=== PATIENT | male | born 1995 | race Caucasian/White ===

== ENCOUNTER 2019-05-27 06:09 | Emergency (ER) | payer BC, SELFPAY ==
[2019-05-27] MEDS ORDERED: NA CHLORIDE 0.9% 1,000 ML ONE (06:36)
[2019-05-27] MEDS ORDERED: FENTANYL CITR 100 MCG/2 ML ONE (06:36)
[2019-05-27] MEDS ORDERED: ONDANSETRON 4 MG/2 ML VIAL ONE (06:36)
[2019-05-27 06:40] LABS: Absolute Lymphocytes (CBC) 2.4 K/uL (0.7-4.9); Basophils % 0.7 % (0-1.3); Lymphocytes % 38.5 % (15.3-44.8); MPV 9.4 fL (7.6-11.3); RBC Red Blood Cell Count 4.79 M/uL (4.33-5.43)
[2019-05-27 06:57] LABS: ALT/SGPT 54 U/L (12-78); AST/SGOT 50 U/L (15-37); Albumin 3.7 g/dL (3.4-5.0); Alkaline Phosphatase 52 U/L (45-117); BUN Blood Urea Nitrogen 15 mg/dL (7-18); Bicarbonate 27 mmol/L (21-32); Bilirubin Direct 0.2 mg/dL (0-0.2); Bilirubin Total 0.7 mg/dL (0.2-1.0); Glucose Level 272 mg/dL (74-106); Lipase 90 U/L (73-393); Potassium 3.7 mmol/L (3.5-5.1); Sodium Level 138 mmol/L (136-145)
--- NOTE | 2019-05-27 07:40 | RAD REPORT ---
EXAM DESCRIPTION: CT - Abdomen Pelvis W Contrast - 05/27/2019 7:24 am CLINICAL HISTORY: ABD PAIN, nausea, history of pancreatitis, prior cholecystectomy COMPARISON: CT March 2017 TECHNIQUE: Biphasic, helical CT imaging of the abdomen and pelvis was performed following 100 ml non -ionic IV contrast. No oral contrast. All CT scans are performed using dose optimization technique as appropriate and may include automated exposure control or mA/KV adjustment according to patient size. FINDINGS: No suspicious findings in the lung bases. Liver attenuation is borderline fatty infiltrated. No focal liver lesions seen. No splenic abnormalit y. Small accessory splenic nodule is present. No pancreatitis findings. No focal pancreatic process s een. Cholecystectomy clips are present with no biliary tree dilatation. Symmetric renal function is seen with no hydronephrosis or suspicious renal mass. No pyelonephritis o r acute parenchymal process. No bladder abnormalities. No adrenal abnormalities. No bowel dilatation or wall thickening. There is no appendicitis. Moderately large stool volume diste nds the rectum. A few fluid-filled small bowel loops are present. There are few sub centimeter mesent konrad lymph nodes seen. No free air, free fluid or inflammatory stranding. No hernia, mass or bulky lymphadenopathy. No suspicious bony findings. L5 pars defects are present without subluxation. IMPRESSION: Contrast enhanced CT abdomen and pelvis imaging shows no emergent finding. A few small mesenteric lymph nodes are present. Fluid-filled distal small bowel loops are present. A mild or minimal enteritis would be possible.
--- NOTE | 2019-05-27 07:46 | EDPHYS ---
Physician Documentation [facility] Name: Claus Shaw Age: 24 yrs Sex: Male : 1995 Arrival Date: 05/27/2019 Time: 06:10 Bed 14 Private MD: ED Physician Ford Rene HPI: 05/27 06:44 This 24 yrs old Male presents to ER via Ambulatory with complaints of kb Abdominal Pain. 06:44 The patient presents with abdominal pain in the upper abdomen. Onset: The kb symptoms/episode began/occurred 1 hour(s) ago. The symptoms do not radiate. Associated signs and symptoms: none. The symptoms are described as intermittent, sharp. Modifying factors: The symptoms are alleviated by nothing, the symptoms are aggravated by nothing. Severity of pain: At its worst the pain was moderate in the emergency department the pain is unchanged. The patient has not experienced similar symptoms in the past. The patient has not recently seen a physician. 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 Denies f/n/v/d. Historical: - Allergies: 06:19 No Known Allergies; tl1 - Home Meds: 06:19 Metformin Oral [Active]; tl1 - PMHx: 06:19 Diabetes - NIDDM; Hypertension; Pancreatitis; tl1 - PSHx: 06:19 Cholecystectomy; tl1 - Immunization history:: Adult Immunizations up to date. - Social history:: Smoking status: Patient/guardian denies using tobacco, Patient/guardian denies using alcohol, street drugs. - Ebola Screening: : Patient negative for fever greater than or equal to 101.5 degrees Fahrenheit, and additional compatible Ebola Virus Disease symptoms Patient denies exposure to infectious person Patient denies travel to an Ebola-affected area in the 21 days before illness onset. ROS: 06:44 Constitutional: Negative for fever, chills, and weight loss, Cardiovascular: Negative kb for chest pain, palpitations, and edema, Respiratory: Negative for shortness of breath, cough, wheezing, and pleuritic chest pain, Back: Negative for injury and pain, : Negative for injury, bleeding, discharge, and swelling, MS/Extremity: Negative for injury and deformity, Skin: Negative for injury, rash, and discoloration, Neuro: Negative for headache, weakness, numbness, tingling, and seizure. 06:44 Abdomen/GI: Positive for abdominal pain, Negative for nausea, vomiting, and diarrhea, constipation, abdominal cramps, abdominal distension, anorexia. Exam: 06:44 Constitutional: This is a well developed, well nourished patient who is awake, alert, kb and in no acute distress. Head/Face: Normocephalic, atraumatic. ENT: Nares patent. No nasal discharge, no septal abnormalities noted. Tympanic membranes are normal and external auditory canals are clear. Oropharynx with no redness, swelling, or masses, exudates, or evidence of obstruction, uvula midline. Mucous membranes moist. Neck: Trachea midline, no thyromegaly or masses palpated, and no cervical lymphadenopathy. Supple, full range of motion without nuchal rigidity, or vertebral point tenderness. No Meningismus. Chest/axilla: Normal chest wall appearance and motion. Nontender with no deformity. No lesions are appreciated. Cardiovascular: Regular rate and rhythm with a normal S1 and S2. No gallops, murmurs, or rubs. Normal PMI, no JVD. No pulse deficits. Respiratory: Lungs have equal breath sounds bilaterally, clear to auscultation and percussion. No rales, rhonchi or wheezes noted. No increased work of breathing, no retractions or nasal flaring. Back: No spinal tenderness. No costovertebral tenderness. Full range of motion. Skin: Warm, dry with normal turgor. Normal color with no rashes, no lesions, and no evidence of cellulitis. MS/ Extremity: Pulses equal, no cyanosis. Neurovascular intact. Full, normal range of motion. Neuro: Awake and alert, GCS 15, oriented to person, place, time, and situation. Cranial nerves II-XII grossly intact. Motor strength 5/5 in all extremities. Sensory grossly intact. Cerebellar exam normal. Normal gait. 06:44 Abdomen/GI: Inspection: abdomen appears normal, Bowel sounds: normal, in all quadrants, Palpation: soft, in all quadrants, moderate abdominal tenderness, in the epigastric area, right upper quadrant and left upper quadrant. Vital Signs: 06:19 BP 144 / 103; Pulse 83; Resp 20; Temp 98.3(O); Pulse Ox 98% on R/A; Weight 107.95 kg; tl1 Height 6 ft. (182.88 cm); Pain 8/10; 07:19 rb1 07:30 BP 130 / 85; Pulse 75; Resp 19; Pulse Ox 96% on R/A; Pain 3/10; rb1 06:19 Body Mass Index 32.28 (107.95 kg, 182.88 cm) tl1 07:[address] rb1 MDM: 06:15 Patient medically screened. kb 06:43 Data reviewed: vital signs, nurses notes. Data interpreted: Pulse oximetry: on room air kb is 98 %. Interpretation: normal. 07:45 Counseling: I had a detailed discussion with the patient and/or guardian regarding: the kb historical points, exam findings, and any diagnostic results supporting the discharge/admit diagnosis, lab results, radiology results, the need for outpatient follow up, a family practitioner, to return to the emergency department if symptoms worsen or persist or if there are any questions or concerns that arise at home. 05/27 06:22 Order name: Basic Metabolic Panel; Complete Time: 07:00 kb 05/27 06:22 Order name: CBC with Diff; Complete Time: 07:00 kb 05/27 06:22 Order name: Hepatic Function; Complete Time: 07:00 kb 05/27 06:22 Order name: Lipase; Complete Time: 07:00 kb 05/27 07:02 Order name: CT Abd/Pelvis - IV Contrast Only; Complete Time: 07:44 kb 05/27 06:22 Order name: IV Saline Lock; Complete Time: 06:48 kb 05/27 06:22 Order name: Labs collected and sent; Complete Time: 06:48 kb Administered Medications: 06:44 Drug: NS 0.9% 1000 ml Route: IV; Rate: 1000 ml; Site: right antecubital; jb4 07:48 Follow up: IV Status: Completed infusion rb1 06:45 Drug: Zofran 4 mg Route: IVP; Site: right antecubital; jb4 07:00 Follow up: Response: No adverse reaction rb1 06:47 Drug: fentaNYL (PF) 25 mcg {Note: Rass score 0.} Route: IVP; Site: right antecubital; jb4 07:00 Follow up: Response: No adverse reaction; Pain is decreased rb1 Disposition: 05/27/19 07:45 Discharged to Home. Impression: Upper abdominal pain, unspecified, Hyperglycemia, unspecified. - Condition is Stable. - Discharge Instructions: Abdominal Pain, Adult, [id number]. - Prescriptions for Bentyl 20 mg Oral Tablet - take 1 tablet by ORAL route every 6 hours As needed; 20 tablet. - Medication Reconciliation Form, Thank You Letter, Antibiotic Education, Prescription Opioid Use, Work release form form. - Follow up: Emergency Department; When: As needed; Reason: Worsening of condition. Follow up: Private Physician; When: 2 - 3 days; Reason: Recheck today's complaints, Continuance of care, Re-evaluation by your physician. Signatures: Dispatcher [employer] EDMS Maribel Hudson, CONCRETING SUPERVISOR-C CONCRETING SUPERVISOR-CkHortensia Lucio, RN RN tl1 Argentina Clarke, RN RN rb1 Jaylon Mccullough RN RN jb4 Corrections: (The following items were deleted from the chart) 07:46 07:45 05/27/2019 07:45 Discharged to Home. Impression: Upper abdominal pain, kb unspecified. Condition is Stable. Forms are Medication Reconciliation Form, Thank You Letter, Antibiotic Education, Prescription Opioid Use. Follow up: Emergency Department; When: As needed; Reason: Worsening of condition. Follow up: Private Physician; When: 2 - 3 days; Reason: Recheck today's complaints, Continuance of care, Re-evaluation by your physician. kb 07:59 07:46 05/27/2019 07:45 Discharged to Home. Impression: Upper abdominal pain, rb1 unspecified; Hyperglycemia, unspecified. Condition is Stable. Discharge Instructions: Abdominal Pain, Adult, [id number]. Prescriptions for Bentyl 20 mg Oral Tablet - take 1 tablet by ORAL route every 6 hours As needed; 20 tablet. and Forms are Medication Reconciliation Form, Thank You Letter, Antibiotic Education, Prescription Opioid Use. Follow up: Emergency Department; When: As needed; Reason: Worsening of condition. Follow up: Private Physician; When: 2 - 3 days; Reason: Recheck today's complaints, Continuance of care, Re-evaluation by your physician. kb
--- NOTE | 2019-05-27 07:46 | ER ---
Nurse's Notes [facility] Name: Claus Shaw Age: 24 yrs Sex: Male : 1995 Arrival Date: 05/27/2019 Time: 06:10 Bed 14 Private MD: Diagnosis: Upper abdominal pain, unspecified;Hyperglycemia, unspecified Presentation: 05/27 06:17 Presenting complaint: Patient states: I started having upper abdominal pain about 1 tl1 hour ago with nausea. I have had pancreatitis before but had my gallbladder taken out in 2017 and have not had it since. Transition of care: patient was not received from another setting of care. Onset of symptoms was May 27, 2019. Risk Assessment: Do you want to hurt yourself or someone else? Patient reports no desire to harm self or others. Initial Sepsis Screen: Does the patient meet any 2 criteria? No. Patient's initial sepsis screen is negative. Does the patient have a suspected source of infection? No. Patient's initial sepsis screen is negative. Care prior to arrival: None. 06:17 Method Of Arrival: Ambulatory tl1 06:17 Acuity: LUISA 3 tl1 Triage Assessment: 06:21 General: Appears uncomfortable, Behavior is calm, cooperative, appropriate for age. tl1 Pain: Complains of pain in epigastric area, right upper quadrant and left upper quadrant Pain currently is 8 out of 10 on a pain scale. Pain began 1 hour ago. Is continuous. EENT: No deficits noted. Neuro: Level of Consciousness is awake, alert, obeys commands. Cardiovascular: Denies chest pain. Respiratory: Airway is patent Trachea midline Respiratory effort is even, unlabored, Breath sounds are clear bilaterally. GI: Abdomen is non-distended, Bowel sounds present X 4 quads. Abdomen is tender to palpation in epigastric area. : No signs and/or symptoms were reported regarding the genitourinary system. Derm: No signs and/or symptoms reported regarding the dermatologic system. Historical: - Allergies: 06:19 No Known Allergies; tl1 - Home Meds: 06:19 Metformin Oral [Active]; tl1 - PMHx: 06:19 Diabetes - NIDDM; Hypertension; Pancreatitis; tl1 - PSHx: 06:19 Cholecystectomy; tl1 - Immunization history:: Adult Immunizations up to date. - Social history:: Smoking status: Patient/guardian denies using tobacco, Patient/guardian denies using alcohol, street drugs. - Ebola Screening: : Patient negative for fever greater than or equal to 101.5 degrees Fahrenheit, and additional compatible Ebola Virus Disease symptoms Patient denies exposure to infectious person Patient denies travel to an Ebola-affected area in the 21 days before illness onset. Screenin:26 Abuse screen: Denies threats or abuse. Nutritional screening: No deficits noted. jb4 Tuberculosis screening: No symptoms or risk factors identified. Fall Risk None identified. Assessment: 06:24 General: Appears in no apparent distress. uncomfortable, Behavior is calm, cooperative, jb4 appropriate for age. Pain: Complains of pain in epigastric area Pain does not radiate. Pain currently is 8 out of 10 on a pain scale. Quality of pain is described as stabbing, Pain began 1 day ago. Neuro: Level of Consciousness is awake, alert, obeys commands, Oriented to person, place, time, situation. Cardiovascular: Patient's skin is warm and dry. Respiratory: Airway is patent Respiratory effort is even, unlabored, Respiratory pattern is regular, symmetrical. GI: Abdomen is round non-distended, Bowel sounds present X 4 quads. Abd is soft X 4 quads Abd is non tender X 4 quads Abdomen is tender to palpation in epigastric area. : No deficits noted. No signs and/or symptoms were reported regarding the genitourinary system. EENT: No deficits noted. No signs and/or symptoms were reported regarding the EENT system. Derm: Skin is intact, Skin is pink, warm \T\ dry. Musculoskeletal: Circulation, motion, and sensation intact. Range of motion: intact in all extremities. 07:00 General: Appears in no apparent distress. comfortable, Behavior is calm, cooperative. rb1 Pain: Complains of pain in abdomen Pain currently is 3 out of 10 on a pain scale. Neuro: Level of Consciousness is awake, alert, obeys commands, Oriented to person, place, time, situation. Cardiovascular: Capillary refill < 3 seconds is brisk in bilateral fingers. Respiratory: Airway is patent Respiratory effort is even, unlabored, Respiratory pattern is regular, symmetrical. Derm: Skin is pink, warm \T\ dry. 07:58 Reassessment: Patient appears in no apparent distress at this time. No changes from rb1 previously documented assessment. Vital Signs: 06:19 BP 144 / 103; Pulse 83; Resp 20; Temp 98.3(O); Pulse Ox 98% on R/A; Weight 107.95 kg; tl1 Height 6 ft. (182.88 cm); Pain 8/10; 07:19 rb1 07:30 BP 130 / 85; Pulse 75; Resp 19; Pulse Ox 96% on R/A; Pain 3/10; rb1 06:19 Body Mass Index 32.28 (107.95 kg, 182.88 cm) tl1 07:[address] rb1 ED Course: 06:10 Patient arrived in ED. ds1 06:10 Maribel Hudson FNP-C is PHCP. kb 06:10 Ford Rene MD is Attending Physician. kb 06:19 Triage completed. tl1 06:20 Arm band placed on right wrist. tl1 06:24 Initial lab(s) drawn, by me, sent to lab. Inserted saline lock: 20 gauge in right jb4 wrist, using aseptic technique. Blood collected. 06:26 Patient has correct armband on for positive identification. Placed in gown. Bed in low jb4 position. Call light in reach. Side rails up X 1. Pulse ox on. NIBP on. 07:25 CT Abd/Pelvis - IV Contrast Only In Process Unspecified. EDMS 07:27 Argentina Clarke, RN is Primary Nurse. rb1 07:58 No provider procedures requiring assistance completed. IV discontinued, intact, rb1 bleeding controlled, No redness/swelling at site. Pressure dressing applied. Administered Medications: 06:44 Drug: NS 0.9% 1000 ml Route: IV; Rate: 1000 ml; Site: right antecubital; jb4 07:48 Follow up: IV Status: Completed infusion rb1 06:45 Drug: Zofran 4 mg Route: IVP; Site: right antecubital; jb4 07:00 Follow up: Response: No adverse reaction rb1 06:47 Drug: fentaNYL (PF) 25 mcg {Note: Rass score 0.} Route: IVP; Site: right antecubital; jb4 07:00 Follow up: Response: No adverse reaction; Pain is decreased rb1 Outcome: 07:45 Discharge ordered by . kb 07:58 Discharged to home ambulatory, with family. rb1 07:58 Condition: stable 07:58 Discharge instructions given to patient, Instructed on discharge instructions, follow up and referral plans. medication usage, Demonstrated understanding of instructions, follow-up care, medications, Prescriptions given X 1. 07:59 Patient left the ED. rb1 Signatures: Dispatcher [employer] EDMS Maribel Hudson, OIL WELL GUN PERFORATOR OPERATOR-C OIL WELL GUN PERFORATOR OPERATOR-CkMary Elena ds1 Hortensia Tmoas RN RN tl1 Argentina Clarke, RN RN rb1 Jaylon Mccullough RN RN jb4
[2019-05-27 08:06] VITALS: TEMP 98.3
[2019-05-27 08:07] VITALS: BP 130/85; O2SAT 96
== END 2019-05-27 07:59 | disposition home or self-care (01) ==
LOC: ER 06:09
DX: E11.65 Type 2 diabetes mellitus with hyperglycemia (principal); I10 Essential (primary) hypertension
CPT/HCPCS: 36415; 74177; 80048; 80076; 83690; 85025; 96361; 96374; 96375; 99284; J2405; J3010; J7030; Q9967

== ENCOUNTER 2022-08-12 00:55 | Inpatient (IN) | payer BC, SELFPAY ==
[2022-08-12] MEDS ORDERED: DIPHENHYDRAMINE 50 MG/ML VIAL ONE (01:34)
[2022-08-12] MEDS ORDERED: NA CHLORIDE 0.9% 1,000 ML ONE ×2 (01:34→04:32)
[2022-08-12] MEDS ORDERED: METOCLOPRAMIDE 10 MG/2mL INJ ONE (01:34)
[2022-08-12 02:19] LABS: Absolute Lymphocytes (CBC) 1.2 K/uL (0.7-4.9); Hematocrit 51.5 % (39.6-49.0); Lymphocytes % 11.6 % (15.3-44.8); MPV 9.2 fL (7.6-11.3); RBC Red Blood Cell Count 5.54 M/uL (4.33-5.43)
[2022-08-12 04:01] LABS: Bilirubin Total 0.6 mg/dL (0.2-1.0); Protein, Total 8.6 g/dL (6.4-8.2)
[2022-08-12 04:02] LABS: Magnesium 2.3 mg/dL (1.6-2.4); Potassium 4.5 mmol/L (3.5-5.1)
--- NOTE | 2022-08-12 04:29 | EDPHYS ---
Physician Documentation [facility] Name: Claus Shaw Age: 27 yrs Sex: Male : 1995 Arrival Date: 08/12/2022 Time: 00:59 Bed 8 Private MD: ED Physician Grabiel Johnson HPI: 08/12 01:50 This 27 yrs old Male presents to ER via Ambulatory with complaints of Headache, Nausea. rt 01:50 The patient complains of pain to the forehead. The patient describes the headache as rt aching. Onset: The symptoms/episode began/occurred 2 day(s) ago. Associated signs and symptoms: Pertinent positives: nausea, vomiting. Presents to the ED with about 2 days of a frontal headache. He states that he gets about 2 headaches a month that are very similar to those. It is improving, almost resolution with Excedrin. About 4 hours prior to arrival, the patient developed nausea and vomiting, reports about 5 episodes. He denies other acute complaints. He states that his nausea also is almost gone. Patient states that he has never had any neuroimaging for his headaches. He denies other acute complaints at this time, symptoms are moderate severity, no other aggravating or alleviating factors. Historical: - Allergies: 01:08 No Known Allergies; vc1 - Home Meds: 01:08 Metformin Oral [Active]; Jardiance oral [Active]; rosuvastatin oral [Active]; vc1 - PMHx: 01:08 Diabetes - NIDDM; Pancreatitis; vc1 - PSHx: 01:08 Cholecystectomy; vc1 - Immunization history:: Client reports receiving the 2nd dose of the Covid vaccine. - Social history:: Smoking status: Patient denies any tobacco usage or history of. - Family history:: not pertinent. ROS: 01:50 Constitutional: Negative for fever, chills, and weight loss, Eyes: Negative for injury, rt pain, redness, and discharge, ENT: Negative for injury, pain, and discharge, Neck: Negative for injury, pain, and swelling, Cardiovascular: Negative for chest pain, palpitations, and edema, Respiratory: Negative for shortness of breath, cough, wheezing, and pleuritic chest pain, MS/Extremity: Negative for injury and deformity, Skin: Negative for injury, rash, and discoloration, Psych: Negative for depression, anxiety, suicide ideation, homicidal ideation, and hallucinations. 01:50 Abdomen/GI: Positive for nausea, vomiting, Negative for abdominal pain. 01:50 Neuro: Positive for headache, Negative for altered mental status. Exam: 01:50 Constitutional: This is a well developed, well nourished patient who is awake, alert, rt and in no acute distress. Head/Face: Normocephalic, atraumatic. Eyes: Pupils equal round and reactive to light, extra-ocular motions intact. Lids and lashes normal. Conjunctiva and sclera are non-icteric and not injected. Cornea within normal limits. Periorbital areas with no swelling, redness, or edema. Chest/axilla: Normal chest wall appearance and motion. Nontender with no deformity. No lesions are appreciated. Cardiovascular: Regular rate and rhythm with a normal S1 and S2. No gallops, murmurs, or rubs. Normal PMI, no JVD. No pulse deficits. Respiratory: Lungs have equal breath sounds bilaterally, clear to auscultation and percussion. No rales, rhonchi or wheezes noted. No increased work of breathing, no retractions or nasal flaring. Abdomen/GI: Soft, non-tender, with normal bowel sounds. No distension or tympany. No guarding or rebound. No evidence of tenderness throughout. Skin: Warm, dry with normal turgor. Normal color with no rashes, no lesions, and no evidence of cellulitis. MS/ Extremity: Pulses equal, no cyanosis. Neurovascular intact. Full, normal range of motion. Neuro: Awake and alert, GCS 15, oriented to person, place, time, and situation. Cranial nerves II-XII grossly intact. Motor strength 5/5 in all extremities. Sensory grossly intact. Cerebellar exam normal. Normal gait. Psych: Awake, alert, with orientation to person, place and time. Behavior, mood, and affect are within normal limits. 01:50 ECG was reviewed by the Attending Physician. Vital Signs: 01:06 BP 139 / 95; Pulse 136; Resp 18; Temp 98.2; Pulse Ox 95% on R/A; Weight 106.59 kg; vc1 Height 5 ft. 11 in. (180.34 cm); Pain 6/10; 02:00 BP 156 / 91; Pulse 177; Resp 20 S; Pulse Ox 98% on R/A; as6 03:03 BP 120 / 79; Pulse 119; Resp 19 S; Pulse Ox 100% on R/A; as6 04:09 BP 127 / 71; Pulse 119; Resp 18 S; Pulse Ox 99% on R/A; as6 05:02 BP 128 / 79; Pulse 120; Resp 17 S; Pulse Ox 99% on R/A; as6 06:00 BP 129 / 84; Pulse 115; Resp 17 S; Pulse Ox 100% on R/A; as6 07:00 BP 124 / 74; Pulse 113; Resp 19 S; Pulse Ox 99% on R/A; as6 01:06 Body Mass Index 32.78 (106.59 kg, 180.34 cm) vc1 MDM: 01:14 Patient medically screened. rt 04:29 Differential diagnosis: Hydration, migraine, intracranial hemorrhage, tumor, rt meningitis, encephalitis. Data reviewed: vital signs, nurses notes, lab test result(s), EKG, radiologic studies. ED course: Presents to the ED with headache, nausea and vomiting. He has not had a previous work-up for his headaches, therefore, CT scan was obtained that shows no evidence of hemorrhage, tumor, hydrocephalus. He has no fever, has full range of motion of the neck, low suspicion for meningitis, encephalitis, subarachnoid hemorrhage, do not believe that lumbar puncture is indicated at this time. Patient with tachycardia, improved with IV fluids. He is found to have a high anion gap metabolic acidosis. Patient with mild hyperglycemia, hyper, he takes an SGLT2 inhibitor, likely a euglycemic DKA. We will start patient on an insulin drip. Patient to be admitted for further care.. 08/12 01:25 Order name: CBC with Diff; Complete Time: 02:37 rt 08/12 01:25 Order name: CMP; Complete Time: 04:04 rt 08/12 01:25 Order name: Lipase; Complete Time: 04:04 rt 08/12 01:25 Order name: Magnesium; Complete Time: 04:04 rt 08/12 04:23 Order name: Ketone, Serum; Complete Time: 04:47 rt 08/12 04:23 Order name: ABG; Complete Time: 04:52 rt 08/12 05:01 Order name: SARS RAPID vc1 08/12 05:05 Order name: Magnesium EDMS 08/12 05:05 Order name: Osmolality, Serum EDMS 08/12 05:05 Order name: Phosphorus EDMS 08/12 05:05 Order name: Acetone Level EDMS 08/12 05:05 Order name: Acetone Level EDMS 08/12 05:05 Order name: Acetone Level EDMS 08/12 05:05 Order name: Acetone Level EDMS 08/12 05:05 Order name: Basic Metabolic Panel EDMS 08/12 05:05 Order name: Basic Metabolic Panel EDMS 08/12 05:05 Order name: Basic Metabolic Panel EDMS 08/12 05:05 Order name: Basic Metabolic Panel EDMS 08/12 06:14 Order name: Glucose, Ancillary Testing EDMS 08/12 06:46 Order name: Urine Dipstick-Ancillary EDMS 08/12 07:03 Order name: Glucose, Ancillary Testing EDMS 08/12 07:49 Order name: Glucose, Ancillary Testing EDMS 08/12 09:01 Order name: Glucose, Ancillary Testing EDMS 08/12 09:34 Order name: Glucose, Ancillary Testing EDMS 08/12 10:40 Order name: ABG Arterial Blood Gas EDMS 08/12 11:00 Order name: Glucose, Ancillary Testing EDMS 08/12 12:03 Order name: Glucose, Ancillary Testing EDMS 08/12 13:25 Order name: Glucose, Ancillary Testing EDMS 08/12 15:18 Order name: Glucose, Ancillary Testing EDMS 08/12 16:38 Order name: Glucose, Ancillary Testing EDMS 08/12 01:25 Order name: EKG; Complete Time: 01:26 rt 08/12 01:25 Order name: EKG - Nurse/Tech; Complete Time: 01:46 rt 08/12 01:25 Order name: CT Head Brain wo Cont rt 08/12 04:23 Order name: Urine Dipstick-Ancillary (obtain specimen); Complete Time: 06:45 rt 08/12 04:24 Order name: Urine Dipstick-Ancillary (obtain specimen); Complete Time: 06:45 la1 08/12 05:05 Order name: NPO EDMS 08/12 17:43 Order name: Glucose, Ancillary Testing EDMS 08/12 18:42 Order name: Glucose, Ancillary Testing EDMS 08/12 20:03 Order name: Glucose, Ancillary Testing EDMS 08/12 20:33 Order name: Basic Metabolic Panel EDMS 08/12 21:03 Order name: Glucose, Ancillary Testing EDMS EC:50 Rate is 112 beats/min. Rhythm is regular, Sinus tachycardia with No ectopy. QRS [place] is rt Normal. MO interval is normal. QRS interval is normal. QT interval is normal. No Q waves. T waves are Normal. No ST changes noted. Interpreted by me. Administered Medications: 01:55 Drug: NS 0.9% 1000 ml Route: IV; Rate: 1 bolus; Site: right antecubital; as6 01:55 Drug: Reglan (metoCLOPramide) 10 mg Route: IVP; Site: right antecubital; as6 01:55 Drug: Benadryl (diphenhydrAMINE) 25 mg Route: IVP; Site: right antecubital; as6 05:00 Drug: Insulin Drip - (Insulin Regular Human 100 units, NS 0.9% 100 ml) {Co-Signature: as6 vc1 (Lisa Padilla RN).} Route: IV; Rate: calculated rate; Site: right antecubital; 05:01 Drug: D5-1/2 NS 1000 ml Route: IV; Rate: 125 ml/hr; Site: left hand; as6 05:02 Drug: NS 0.9% 1000 ml Route: IV; Rate: 1 bolus; Site: right antecubital; as6 06:52 Drug: Ketorolac 30 mg Route: IVP; Site: left hand; as6 Disposition Summary: 08/12/22 04:28 Hospitalization Ordered Hospitalization Status: Inpatient Admission rt Condition: Fair rt Problem: new rt Symptoms: have improved rt Bed/Room Type: Standard rt Provider: Austin Veras(08/12/22 04:55) rt Location: Intensive Care Unit(08/12/22 20:24) cg Room Assignment: 7-(08/12/22 20:24) cg Diagnosis - Other specified diabetes mellitus with ketoacidosis without coma rt Forms: - Medication Reconciliation Form rt - SBAR form rt Critical care time excluding procedures: 04:29 Critical care time: Bedside Care: 30 minutes, Consultation: 5 minutes. Total time: 35 rt minutes Signatures: Dispatcher [employer] EDFL Jeremy Caicedo FNP-C PORTABLE SAWMILL OPERATOR-Cla1 Briana Shaw RN RN cg Slawson, Ashby, RN RN as6 Lisa Padilla RN RN vc1 Grabiel Johnson MD MD rt Lisa Padilla RN vc1 Corrections: (The following items were deleted from the chart) 01:10 01:08 PMHx: Hypertension; 1 vc1 04:55 04:28 Marvin Real rt rt 05:06 04:28 Intensive Care Unit rt cg 05:06 04:28 rt cg 20:24 05:06 [facility] ER HOLD cg cg 20:24 05:06 ERHOLD- cg cg
--- NOTE | 2022-08-12 04:29 | ER ---
Nurse's Notes [facility] Name: Claus Shaw Age: 27 yrs Sex: Male : 1995 Arrival Date: 08/12/2022 Time: 00:59 Bed 8 Private MD: Diagnosis: Other specified diabetes mellitus with ketoacidosis without coma Presentation: 08/12 01:06 Chief complaint: Patient states: "I have had a headache and nasal congestion for the vc1 past 3 days, the las 24 hours I have started feeling nauseous and around 6 pm I started vomiting.". Coronavirus screen: Vaccine status: Patient reports receiving the 2nd dose of the covid vaccine. Moderna chills, headache, nausea, vomiting. Client presents with at least one sign or symptom that may indicate coronavirus-19. Standard/surgical mask placed on the client. Provider contacted for isolation considerations. Ebola Screen: No symptoms or risks identified at this time. Initial Sepsis Screen: Does the patient meet any 2 criteria? HR > 90 bpm. No. Patient's initial sepsis screen is negative. Does the patient have a suspected source of infection? No. Patient's initial sepsis screen is negative. Risk Assessment: Do you want to hurt yourself or someone else? Patient reports no desire to harm self or others. Onset of symptoms was August 09, 2022. 01:06 Method Of Arrival: Ambulatory vc1 01:06 Acuity: LUISA 3 vc1 Triage Assessment: 01:10 Headache History: The patient has had previous headaches and this one is similar to vc1 previous episodes. General: Appears in no apparent distress. uncomfortable, ill, Behavior is calm, cooperative, appropriate for age. Pain: Complains of pain in forehead and left side of forehead Pain does not radiate. Pain currently is 6 out of 10 on a pain scale. Pain began gradually, Also complains of nausea. EENT: No deficits noted. Neuro: Level of Consciousness is awake, alert, obeys commands, Oriented to person, place, time, situation, Appropriate for age [employer] are Reports headache in left frontal area. Cardiovascular:. Respiratory: Airway is patent Respiratory effort is even, unlabored, Respiratory pattern is regular, symmetrical. GI: No deficits noted. No signs and/or symptoms were reported involving the gastrointestinal system. : No deficits noted. No signs and/or symptoms were reported regarding the genitourinary system. Derm: No deficits noted. No signs and/or symptoms reported regarding the dermatologic system. Musculoskeletal: No deficits noted. No signs and/or symptoms reported regarding the musculoskeletal system. Historical: - Allergies: 01:08 No Known Allergies; vc1 - Home Meds: 01:08 Metformin Oral [Active]; Jardiance oral [Active]; rosuvastatin oral [Active]; vc1 - PMHx: 01:08 Diabetes - NIDDM; Pancreatitis; vc1 - PSHx: 01:08 Cholecystectomy; vc1 - Immunization history:: Client reports receiving the 2nd dose of the Covid vaccine. - Social history:: Smoking status: Patient denies any tobacco usage or history of. - Family history:: not pertinent. Screenin:02 [facility] ED Fall Risk Assessment (Adult) Score/Fall Risk Level 0 - 2 = Low Risk. Abuse as6 screen: Denies threats or abuse. Denies injuries from another. Nutritional screening: No deficits noted. Tuberculosis screening: No symptoms or risk factors identified. Assessment: 01:15 General: Appears uncomfortable, Behavior is calm, cooperative. Pain: Complains of pain as6 in face and left side of forehead and forehead. Neuro: Level of Consciousness is awake, alert, obeys commands, Oriented to person, place, time, situation, Reports headache in left frontal area. Cardiovascular: Capillary refill < 3 seconds Patient's skin is warm and dry. Rhythm is sinus tachycardia. Respiratory: Respiratory effort is even, unlabored, Respiratory pattern is regular, symmetrical. GI: Reports nausea. 02:00 GI: Pt is actively vomiting clear fluid. as6 03:05 Reassessment: Patient appears in no apparent distress at this time. Patient and/or as6 family updated on plan of care and expected duration. Pain level reassessed. Patient is alert, oriented x 3, equal unlabored respirations, skin warm/dry/pink. Patient states symptoms have improved. 04:09 Reassessment: Patient appears in no apparent distress at this time. Patient and/or as6 family updated on plan of care and expected duration. Pain level reassessed. Patient is alert, oriented x 3, equal unlabored respirations, skin warm/dry/pink. Patient states feeling better. Patient states symptoms have improved. Vital Signs: 01:06 BP 139 / 95; Pulse 136; Resp 18; Temp 98.2; Pulse Ox 95% on R/A; Weight 106.59 kg; vc1 Height 5 ft. 11 in. (180.34 cm); Pain 6/10; 02:00 BP 156 / 91; Pulse 177; Resp 20 S; Pulse Ox 98% on R/A; as6 03:03 BP 120 / 79; Pulse 119; Resp 19 S; Pulse Ox 100% on R/A; as6 04:09 BP 127 / 71; Pulse 119; Resp 18 S; Pulse Ox 99% on R/A; as6 05:02 BP 128 / 79; Pulse 120; Resp 17 S; Pulse Ox 99% on R/A; as6 06:00 BP 129 / 84; Pulse 115; Resp 17 S; Pulse Ox 100% on R/A; as6 07:00 BP 124 / 74; Pulse 113; Resp 19 S; Pulse Ox 99% on R/A; as6 01:06 Body Mass Index 32.78 (106.59 kg, 180.34 cm) vc1 ED Course: 00:59 Patient arrived in ED. ja2 01:00 Grabiel Johnson MD is Attending Physician. rt 01:08 Triage completed. vc1 01:08 Arm band placed on right wrist. vc1 01:17 Ac Neri, ROBERT is Primary Nurse. as6 01:50 Inserted saline lock: 20 gauge in right antecubital area, using aseptic technique. as6 Blood collected. 02:02 Bed in low position. Call light in reach. Side rails up X 1. Adult w/ patient. as6 02:02 Magnesium Sent. as6 02:02 CMP Sent. as6 02:02 Lipase Sent. as6 02:02 CBC with Diff Sent. as6 02:22 CT Head Brain wo Cont In Process Unspecified. EDMS 04:27 Marvin Real MD is Hospitalizing Provider. rt 04:55 Austin Veras MD is Hospitalizing Provider. rt 05:02 Inserted saline lock: 22 gauge in left hand, using aseptic technique. as6 07:10 No provider procedures requiring assistance completed. Patient admitted, IV remains in as6 place. Administered Medications: 01:55 Drug: NS 0.9% 1000 ml Route: IV; Rate: 1 bolus; Site: right antecubital; as6 01:55 Drug: Reglan (metoCLOPramide) 10 mg Route: IVP; Site: right antecubital; as6 01:55 Drug: Benadryl (diphenhydrAMINE) 25 mg Route: IVP; Site: right antecubital; as6 05:00 Drug: Insulin Drip - (Insulin Regular Human 100 units, NS 0.9% 100 ml) {Co-Signature: as6 vc1 (Lisa Padilla RN).} Route: IV; Rate: calculated rate; Site: right antecubital; 05:01 Drug: D5-1/2 NS 1000 ml Route: IV; Rate: 125 ml/hr; Site: left hand; as6 05:02 Drug: NS 0.9% 1000 ml Route: IV; Rate: 1 bolus; Site: right antecubital; as6 06:52 Drug: Ketorolac 30 mg Route: IVP; Site: left hand; as6 Medication: 01:12 VIS not applicable for this client. vc1 Outcome: 04:28 Decision to Hospitalize by Provider. rt 07:10 Admitted to ER Hold. Please see [facility] for further documentation. as6 07:10 Condition: stable 07:10 Instructed on the need for admit. 21:07 Patient left the ED. as6 Signatures: Dispatcher [employer] EDMS Mimi Zazueta Ashby, RN RN as6 Lisa Padilla RN RN vc1 Grabiel Johnson MD MD rt Lisa Padilla RN vc1 Corrections: (The following items were deleted from the chart) 01:10 01:08 PMHx: Hypertension; vc1 vc1
[2022-08-12] MEDS ORDERED: INSULIN -REGULAR HUMAN 50 UNIT/0.5 ML ML ONE (04:32)
[2022-08-12] MEDS ORDERED: NA CHLORIDE 0.9% 100 ML IV ONE (04:32)
[2022-08-12] MEDS ORDERED: D5 0.45 NS 1,000 ML IV ONE (04:34)
[2022-08-12 04:44] LABS: Arterial Blood Carboxyhemoglob 1.1 % (0-1.5); Blood Gas Oxyhemoglobin 93.5 % (94-97); Blood O2 Saturation 96.3 % (92-98.5)
[2022-08-12] MEDS ORDERED: ONDANSETRON 4 MG/2 ML VIAL IV PRN (05:00)
[2022-08-12] MEDS: POTASSIUM CHLORIDE-0.45% NACL 20 MEQ/1,000 ML BAG IV SCH ×5 (05:00→21:00)
[2022-08-12] MEDS ORDERED: INSULIN -REGULAR HUMAN 100 UNIT in NA CHLORIDE 0.9% 100 ML IV SCH (05:00)
[2022-08-12 06:20] LABS: SARS-CoV-2 Antigen Rapid Res Negative (Negative)
[2022-08-12 06:25] LABS: BUN Blood Urea Nitrogen 20 mg/dL (7-18); Glomerular Filtration Rate 70 ml/min (=/>90); Glucose Level 175 mg/dL (74-106); Phosphorus 4.4 mg/dL (2.5-4.9); Sodium Level 139 mmol/L (136-145)
[2022-08-12 06:26] LABS: Bicarbonate 10 mmol/L (21-32); Magnesium 2.4 mg/dL (1.6-2.4); Potassium 4.2 mmol/L (3.5-5.1)
[2022-08-12 06:46] LABS: Urine Blood Negative (Negative); Urine Glucose 2+ (Negative); Urine Protein 1+ (Negative); Urine Specific Gravity >=1.030 (1.005-1.030)
[2022-08-12] MEDS ORDERED: KETOROLAC 30 MG/ML INJ ONE (06:50)
[2022-08-12] MEDS: D5.45NS W/KCL 20MEQ 1,000 ML IV SCH ×4 (07:00→22:01)
[2022-08-12] MEDS: ENOXAPARIN 40 MG/0.4 ML SQ SCH (09:00)
[2022-08-12] MEDS ORDERED: ENOXAPARIN 40 MG/0.4 ML SQ ONE (09:05)
[2022-08-12 09:39] LABS: BUN Blood Urea Nitrogen 18 mg/dL (7-18); Glomerular Filtration Rate 84 ml/min (=/>90); Glucose Level 187 mg/dL (74-106); Sodium Level 133 mmol/L (136-145)
[2022-08-12 09:40] LABS: Bicarbonate 9 mmol/L (21-32); Potassium 4.1 mmol/L (3.5-5.1)
[2022-08-12 10:39] LABS: Arterial Blood Carboxyhemoglob 1.1 % (0-1.5); Blood Gas Oxyhemoglobin 87.4 % (94-97); Blood O2 Saturation 89.9 % (92-98.5)
[2022-08-12] MEDS ORDERED: ACETAMINOPHEN 500 MG TAB ONE (13:04)
[2022-08-12] MEDS: ACETAMINOPHEN 500 MG TAB PO PRN (13:30)
[2022-08-12] MEDS ORDERED: D5.45NS W/KCL 20MEQ 1,000 ML IV ONE (14:13)
[2022-08-12 14:34] LABS: BUN Blood Urea Nitrogen 15 mg/dL (7-18); Glomerular Filtration Rate 72 ml/min (=/>90); Glucose Level 138 mg/dL (74-106); Sodium Level 136 mmol/L (136-145)
[2022-08-12 14:37] LABS: Bicarbonate 14 mmol/L (21-32); Potassium 4.1 mmol/L (3.5-5.1)
[2022-08-12] MEDS: FLUTICASONE 50MCG NASAL SPRAY NAS SCH ×3 (15:45→22:47)
[2022-08-12] MEDS: SUMATRIPTAN SUCCI 50 MG TAB PO PRN ×2 (16:09→21:59)
--- NOTE | 2022-08-12 16:25 | EKG ---
Test Date: 2022-08-12 Test Time: 01:40:35 Supervisor Type Disk Quality Control: MEASUREMENT RESULTS: Intervals: Rate: 112 IL: 136 QRSD: 94 QT: 336 QTc: 458 [place]: P: 53 IL: 136 QRS: 30 T: 13 INTERPRETIVE STATEMENTS: Sinus tachycardia Otherwise normal ECG No previous ECG available for comparison Electronically Signed On 08-12-22 16:24:38 FORMS EXAMINER by Fabian Canseco
[2022-08-12] MEDS ORDERED: ONDANSETRON 4 MG/2 ML VIAL ONE (17:02)
--- NOTE | 2022-08-12 17:34 | P.HP ---
Certification for Inpatient Patient admitted to: Inpatient With expected LOS: >2 Midnights Practitioner: I am a practitioner with admitting privileges, knowledge of patient current condition, hospital course, and medical plan of care. Services: Services provided to patient in accordance with Admission requirements found in Title 42 Section 412.3 of the Code of Federal Regulations Patient History Date of Service: 08/12/22 Reason for admission: WEAKNESS, NAUSEA FOR TWO DAYS History of Present Illness: SHAY IS A DIABETIC WHO HAS BEEN ON NO INSULIN BEFORE. HE HAS BEEN ON M ETFORMIN BEFORE AND JARDIANCE NOW. HE IS NOT COMPLIANT WITH DIETS AND LAB ORDERS. HE WAS TO COME TO ME EVERY 3 MOTNHS AFTER LAB AND HE HAS NOT DONE ANY LAB WORK FOR LAST YEAR AND A HALF. HIS LAST A1C WAS 11. HE COMES IN WITH SYMPTOMS AND DIAGNOSIS OF DKA. Allergies No Known Allergies Allergy (Unverified 07/06/12 17:47) Home Medications: Empagliflozin [Jardiance] 25 mg PO DAILY 08/12/22 Rosuvastatin [Crestor*] 20 mg PO DAILY AT SUPPER 08/12/22 - Past Medical/Surgical History Has patient received pneumonia vaccine in the past: No Diabetic: Yes - Social History Smoking Status: Never smoker Review of Systems 10-point ROS is otherwise unremarkable General: Weakness, Malaise Physical Examination - Vital Signs Temperature: 99.3 F Blood Pressure: 125/92 Pulse: 110 Respirations: 19 Pulse Ox (%): 99 - Physical Exam General: Oriented x3, Acute distress, Mild distress, Moderate distress HEENT: Atraumatic, PERRLA, Mucous membr. moist/pink, EOMI, Sclerae nonicteric Neck: Supple, 2+ carotid pulse no bruit, No LAD, Without JVD or thyroid abnormality Respiratory: Clear to auscultation bilaterally, Normal air movement Cardiovascular: Regular rate/rhythm, Normal S1 S2 Gastrointestinal: Normal bowel sounds, No tenderness Musculoskeletal: No tenderness Integumentary: No rashes Neurological: Normal gait, Normal speech, Normal strength at 5/5 x4 extr, Normal tone, Normal affect Lymphatics: No axilla or inguinal lymphadenopathy - Studies Laboratory Data (last 24 hrs) 08/12/22 03:26: Sodium 135 L, Potassium 4.5, BUN 21 H, Creatinine 1.24, Glucose 202 H, Magnesium 2.3, Total Bilirubin 0.6, AST 27, ALT 62 H, Alkaline Phosphatase 62, Lipase 60 L 08/12/22 01:55: WBC 10.60, Hgb 17.3, Hct 51.5 H, Plt Count 298 Assessment and Plan - Problems (Diagnosis) (1) DKA (diabetic ketoacidosis) Current Visit: Yes Status: Acute Plan: HIS ANION GAP IS CLOSE TO 30 AND INSULIN DRIP, IV HYDRATION HAVE BEEN STARTED. HE HAS HEADCHES AND IS BEING TREATED. HIS LAB HAS IPROVED WELL OVER 12 HOURS. GAP IS DOWN TO 18 NOW AND HE IS STILL ON INSULIN DRIP UNTIL GAP IS DOWN TO NORMAL. HIS PH ON ABG IS 7.13 AND BEYOND 6.9 THERE IS NOT BENEFIT OF BICARB INJECTIONS. PROGNOSIS IS GUARDED HE KNOWS HE WILL BE ON INSULIN FROM NOW ONWARDS. I AM AFRAID HIS COMPLIANCE WILL CONTINUE TO BE POOR. HE KNOWS WITHOUT GOOD CONTROL OF DM HE WILL HAVE LOT OF COMPLICATIONS SOON. Qualifiers: Diabetes mellitus type: type 1 - Advance Directives Does patient have a Living Will: No Does patient have a Durable POA for Healthcare: No
[2022-08-12 20:32] LABS: Potassium 4.1 mmol/L (3.5-5.1)
[2022-08-12] MEDS: PANTOPRAZOLE 40MG TABLET PO SCH (22:11)
[2022-08-13] MEDS: POTASSIUM CHLORIDE-0.45% NACL 20 MEQ/1,000 ML BAG IV SCH ×7 (01:00→20:00)
[2022-08-13 02:18] LABS: Arterial Blood Carboxyhemoglob 1.5 % (0-1.5); Blood Gas Oxyhemoglobin 94.5 % (94-97); Blood O2 Saturation 97.6 % (92-98.5)
[2022-08-13] MEDS: D5.45NS W/KCL 20MEQ 1,000 ML IV SCH ×5 (04:29→16:23)
[2022-08-13 05:04] LABS: Potassium 3.5 mmol/L (3.5-5.1)
[2022-08-13] MEDS: ACETAMINOPHEN 500 MG TAB PO PRN ×3 (06:11→20:56)
[2022-08-13] MEDS: PANTOPRAZOLE 40MG TABLET PO SCH (06:12)
[2022-08-13 06:19] VITALS: BMI 31.9
[2022-08-13 07:51] LABS: Potassium 3.6 mmol/L (3.5-5.1)
[2022-08-13] MEDS: FLUTICASONE 50MCG NASAL SPRAY NAS SCH ×2 (08:30→20:00)
[2022-08-13] MEDS: ENOXAPARIN 40 MG/0.4 ML SQ SCH (08:31)
[2022-08-13] MEDS: TIZANIDINE 4 MG TABLET PO PRN ×2 (09:16→17:59)
[2022-08-13 11:20] LABS: Potassium 3.5 mmol/L (3.5-5.1)
--- NOTE | 2022-08-13 11:21 | RAD REPORT ---
EXAM DESCRIPTION: CT - Head Brain Wo Cont - 08/12/2022 6:42 am CLINICAL HISTORY: 27 years, Male, headache COMPARISON: None. FINDINGS: Multiple transaxial tomograms of the brain were obtained from the base of the skull to the vertex without contrast. 2-D multiplanar reformats and the coronal and sagittal plane were performed and reviewed. This exam was performed according to our departmental dose-optimization protocol, which includes auto mated exposure control, adjustment of the mA and/or kV according to patient size and/or use of iterat gerry reconstruction technique. Brain parenchyma as well as the venegas and white matter differentiation demonstrate to be unremarkable. There is no midline shift and/or mass effect. There is no evidence for acute hemorrhage. No focal ar eas of hypodensities. Lateral ventricles and cisterns displace normal appearance. No intra or ext ra axial fluid collections were seen. The calvarium is intact with no evidence for fracture. The visu alized portions of the paranasal sinuses and orbits demonstrate to be clear. IMPRESSION: No acute intracranial hemorrhage identified. Unremarkable CT scan of the head without contrast. Electronically signed by: Bridger Gonzalez MD 08/12/2022 2:27 AM [facility] Due to temporary technical issues with the PACS/Fluency reporting system, reports are being signed by the in house radiologists without review as a courtesy to insure prompt reporting. The interpreting radiologist is fully responsible for the content of the report.
--- NOTE | 2022-08-13 14:05 | P.PN ---
Subjective Date of Service: 08/13/22 Chief Complaint: DKA Subjective: Improving HE HAS SOME HEADACHES AND NECK SPASM. HE IS BETTER OTHERWISE. HAS NO NAUSEA, VOMITING, OR DIARRHEA. Physical Examination - Vital Signs Temperature: 97.1 F Blood Pressure: 94/6 Pulse: 87 Respirations: 12 Pulse Ox (%): 99 - Physical Exam General: Acute distress, Mild distress HEENT: Atraumatic, PERRLA, EOMI Neck: Supple, JVD not distended Respiratory: Clear to auscultation bilaterally, Normal air movement Cardiovascular: Regular rate/rhythm, Normal S1 S2 Gastrointestinal: Normal bowel sounds, No tenderness Musculoskeletal: No tenderness Integumentary: No rashes Neurological: Normal speech, Normal tone, Normal affect Lymphatics: No axilla or inguinal lymphadenopathy - Studies Medications List Reviewed: Yes Assessment And Plan - Current Problems (Diagnosis) (1) DKA (diabetic ketoacidosis) Current Visit: Yes Status: Acute Plan: HIS ANION GAP IS CLOSE TO 30 AND INSULIN DRIP, IV HYDRATION HAVE BEEN STARTED. HE HAS HEADCHES AND IS BEING TREATED. HIS LAB HAS IPROVED WELL OVER 12 HOURS. GAP IS DOWN TO 18 NOW AND HE IS STILL ON INSULIN DRIP UNTIL GAP IS DOWN TO NORMAL. HIS PH ON ABG IS 7.13 AND BEYOND 6.9 THERE IS NOT BENEFIT OF BICARB INJECTIONS. PROGNOSIS IS GUARDED HE KNOWS HE WILL BE ON INSULIN FROM NOW ONWARDS. I AM AFRAID HIS COMPLIANCE WILL CONTINUE TO BE POOR. HE KNOWS WITHOUT GOOD CONTROL OF DM HE WILL HAVE LOT OF COMPLICATIONS SOON. INSULIN DOSE INCREASED AND IT WORKED WELL WITH REDUCTION OF ANION GAP. CONT IV FLUIDS. Qualifiers: Diabetes mellitus type: type 1 Critical Care: Yes
[2022-08-13 15:19] LABS: Potassium 3.4 mmol/L (3.5-5.1)
[2022-08-13] MEDS ORDERED: GLUCAGON 1 MG/VIAL IM PRN (17:28)
[2022-08-13] MEDS: INSULIN -REGULAR HUMAN 50 UNIT/0.5 ML ML SQ SCH ×2 (17:30→21:00)
[2022-08-13] MEDS ORDERED: D10W 250 ML BAG IV PRN (17:40)
[2022-08-13] MEDS: KCL 20 MEQ/100 mL IVPB 20 MEQ/100 ML BAG IV SCH ×2 (17:42→20:00)
[2022-08-13 18:49] LABS: Potassium 3.5 mmol/L (3.5-5.1)
[2022-08-13] MEDS ORDERED: NACHLORIDE 0.45% 1,000 ML IV ONE (20:45)
[2022-08-13] MEDS ORDERED: KCL 20 MEQ/100 mL IVPB 100 ML IV ONE (20:46)
[2022-08-13 23:03] LABS: Potassium 3.7 mmol/L (3.5-5.1)
[2022-08-14] MEDS: TIZANIDINE 4 MG TABLET PO PRN (00:50)
[2022-08-14] MEDS: INSULIN -REGULAR HUMAN 50 UNIT/0.5 ML ML SQ SCH ×3 (01:30→07:57)
[2022-08-14] MEDS ORDERED: KCL 20 MEQ/100 mL IVPB 100 ML IV ONE (02:51)
[2022-08-14] MEDS ORDERED: NACHLORIDE 0.45% 1,000 ML IV ONE (02:52)
[2022-08-14] MEDS: POTASSIUM CHLORIDE-0.45% NACL 20 MEQ/1,000 ML BAG IV SCH ×2 (02:58)
[2022-08-14 04:00] LABS: Magnesium 2.1 mg/dL (1.6-2.4); Potassium 3.5 mmol/L (3.5-5.1)
[2022-08-14] MEDS: PANTOPRAZOLE 40MG TABLET PO SCH (05:40)
[2022-08-14] MEDS: FLUTICASONE 50MCG NASAL SPRAY NAS SCH ×2 (07:58→19:50)
[2022-08-14] MEDS ORDERED: POTASSIUM CHLORIDE-0.45% NACL 20 MEQ/1,000 ML BAG IV SCH (08:00)
[2022-08-14] MEDS: ENOXAPARIN 40 MG/0.4 ML SQ SCH (08:02)
[2022-08-14 08:41] LABS: Potassium 3.5 mmol/L (3.5-5.1)
[2022-08-14] MEDS: ACETAMIN/CAFFEINE/BUTALB TAB PO PRN ×2 (08:52→20:37)
[2022-08-14] MEDS ORDERED: INSULIN GLARGINE 100 UNIT/ML SQ SCH (09:00)
[2022-08-14 11:51] LABS: Potassium 3.6 mmol/L (3.5-5.1)
[2022-08-14] MEDS ORDERED: D50W 25 GM/50 ML SYRINGE IV PRN ×2 (12:26→12:38)
[2022-08-14] MEDS ORDERED: GLUCAGON 1 MG/VIAL IM PRN ×2 (12:26→12:38)
[2022-08-14] MEDS ORDERED: INSULIN -REGULAR HUMAN 50 UNIT/0.5 ML ML IV SCH (12:30)
[2022-08-14] MEDS ORDERED: INSULIN -REGULAR HUMAN 100 UNIT in NA CHLORIDE 0.9% 100 ML IV SCH (12:45)
[2022-08-14] MEDS: NACHLORIDE 0.45% 1,000 ML with POTASSIUM CL 40 MEQ IV SCH ×4 (13:00→19:48)
[2022-08-14] MEDS: D5.45NS W/KCL 40MEQ 40 MEQ/1,000 ML BAG IV SCH ×2 (13:18→19:49)
--- NOTE | 2022-08-14 17:59 | P.PN ---
Subjective Date of Service: 08/14/22 Chief Complaint: DKA Subjective: No new changes HE HAS SOME HEADACHES AND NECK SPASM. HE IS BETTER OTHERWISE. HAS NO NAUSEA, VOMITING, OR DIARRHEA. HE IS DOING LOT BETTER BUT NOT READY TO GO HOME YET. HE WANTED TO GO HOME. I ASKED HIM TO STAY AND HE DECIDED TO STAY. HE WILL BE BACK ON INSULIN DRIP BICARB IS DROPPING AND ABG PH IS NOT UPTO THE PAR YET . HE HAS HEADACHES AND TYLENOL I SNOT WORKING, ZANAFLEX WORKED BUT HE GOT SLEEPY WITH IT AND SUMATR IPTAN DID NOT WORK. Review of Systems 10-point ROS is otherwise unremarkable General: Weakness Physical Examination - Vital Signs Temperature: 97.0 F Blood Pressure: 116/67 Pulse: 92 Respirations: 17 Pulse Ox (%): 100 - Physical Exam General: Oriented x3, Mild distress HEENT: Atraumatic, PERRLA, EOMI Neck: Supple, JVD not distended Respiratory: Clear to auscultation bilaterally, Normal air movement Cardiovascular: Regular rate/rhythm, Normal S1 S2 Gastrointestinal: Normal bowel sounds, No tenderness Musculoskeletal: No tenderness Integumentary: No rashes Neurological: Normal speech, Normal tone, Normal affect Lymphatics: No axilla or inguinal lymphadenopathy - Studies Medications List Reviewed: Yes Assessment And Plan - Current Problems (Diagnosis) (1) DKA (diabetic ketoacidosis) Current Visit: Yes Status: Acute Plan: HIS ANION GAP IS CLOSE TO 30 AND INSULIN DRIP, IV HYDRATION HAVE BEEN STARTED. HE HAS HEADCHES AND IS BEING TREATED. HIS LAB HAS IPROVED WELL OVER 12 HOURS. GAP IS DOWN TO 18 NOW AND HE IS STILL ON INSULIN DRIP UNTIL GAP IS DOWN TO NORMAL. HIS PH ON ABG IS 7.13 AND BEYOND 6.9 THERE IS NOT BENEFIT OF BICARB INJECTIONS. PROGNOSIS IS GUARDED HE KNOWS HE WILL BE ON INSULIN FROM NOW ONWARDS. I AM AFRAID HIS COMPLIANCE WILL CONTINUE TO BE POOR. HE KNOWS WITHOUT GOOD CONTROL OF DM HE WILL HAVE LOT OF COMPLICATIONS SOON. INSULIN DOSE INCREASED AND IT WORKED WELL WITH REDUCTION OF ANION GAP. CONT IV FLUIDS HE HAD SHORT PERIOD WITHOUT DRIP AND ON LANTUS PLUS SLIDING SCALE FAST INSULIN. HE HAS NO SYMPTOMS BUT BICARB IN LAB DROPPED. I ASKED HIM TO STAY AND BACK ON INSULIN DRIP FOR DAY OR TWO MORE. HE AGREED. HE REFUSED TO DO ANY LAB FOR A FEW HOURS.. Qualifiers: Diabetes mellitus type: type 1
[2022-08-14 18:36] LABS: Potassium 3.5 mmol/L (3.5-5.1)
[2022-08-14 22:00] LABS: Potassium 3.4 mmol/L (3.5-5.1)
[2022-08-15] MEDS: NACHLORIDE 0.45% 1,000 ML with POTASSIUM CL 40 MEQ IV SCH ×2 (02:36)
[2022-08-15] MEDS: D5.45NS W/KCL 40MEQ 40 MEQ/1,000 ML BAG IV SCH (02:56)
[2022-08-15 05:50] LABS: Potassium 3.2 mmol/L (3.5-5.1)
[2022-08-15 06:25] VITALS: BP 121/53; TEMP 97.2
[2022-08-15] MEDS: PANTOPRAZOLE 40MG TABLET PO SCH (06:30)
[2022-08-15] MEDS: FLUTICASONE 50MCG NASAL SPRAY NAS SCH (07:36)
[2022-08-15] MEDS: ENOXAPARIN 40 MG/0.4 ML SQ SCH (07:36)
[2022-08-15 07:49] VITALS: O2SAT 99
[2022-08-15] MEDS ORDERED: INSULIN GLARGINE 100 UNIT/ML SQ SCH (09:00)
== END 2022-08-15 10:05 | disposition home or self-care (01) | DRG 639 ==
LOC: ER 00:55 → ERHOLD 04:57 → 3RD-ICU 20:35
PROVIDERS: ADMIT Internal Medicine; ATTEND Internal Medicine
DX: E10.10 Type 1 diabetes mellitus with ketoacidosis without coma (principal); Z79.84 Long term (current) use of oral hypoglycemic drugs; Z90.49 Acquired absence of other specified parts of digestive tract; Z91.119 Patient's noncompliance with dietary regimen due to unspecified reason; Z91.199 Patient's noncompliance with other medical treatment and regimen due to unspecified reason; Z79.899 Other long term (current) drug therapy; Z20.822 Contact with and (suspected) exposure to COVID-19
CPT/HCPCS: 36415; 70450; 80048; 80053; 81003; 82010; 82805; 82947; 83690; 83735; 83930; 84100; 85025; 87811; 93005; 99285; J1200; J1650; J1815; J2405; J2765; J3480; J7030; J7799